=== PATIENT | female | born 1940 | race Caucasian/White ===

== ENCOUNTER → 2016-09-08 | Outpatient (CLI) | payer MEDICARE, BC ==
[~2016-09-08] MED LIST: ASA CHILDREN'S81 MG PO; CALCIUM600 MG PO; CENTRUM SILVER1 EAC1 PO; CITRATE OF MAG296 ML PO; CLARITIN10 MG PO; COLACE100 MG PO; COQ-10100 MG PO; FISH OIL 1,2001 EACH PO; FLONASE 0.05% D16 GM NS; HAIR, SKIN & N1 EACH PO; LIPITOR20 MG PO; LOTENSIN10 MG PO; LUTEIN40 MG PO; MAALOX DPS30 ML PO; MAGNESIUM250 M1 PO; MIRALAX510 GM PO; NEURONTIN DPS100 MG PO; NORVASC5 MG PO; OSTEO BI-FLEX1 EAC1 PO; PEPCID DPS20 MG PO; PROTONIX40 MG PO; SENOKOT8.6 MG PO; SUPER B COMPLE150 MG PO; SYNTHROID75 MCG PO; TYLENOL325 MG PO; VITAMIN D2000 UNI1 PO
== END | disposition home or self-care (01) ==
LOC: RAD.S 09-01 12:22
DX: Z12.31 Encounter for screening mammogram for malignant neoplasm of breast (principal); R41.81 Age-related cognitive decline; J34.89 Other specified disorders of nose and nasal sinuses